=== PATIENT | male | born 1955 | race African-American/Black ===

== ENCOUNTER 2017-11-18 10:26 | Emergency (ER) | payer MEDICARE ==
[~2017-11-18] VITALS: Ht 182.9 cm; Wt 90.9 kg
[2017-11-18 10:49] VITALS: BP 181/78; Ht 182.9 cm; Wt 90.9 kg
[2017-11-18] MEDS ORDERED: PRINIVIL20 MG (10:52)
[2017-11-18] MEDS ORDERED: HYDROCODONE-APA1 TAB PO (10:52)
[2017-11-18] MEDS ORDERED: ZOCOR10 MG (10:53)
[2017-11-18] MEDS ORDERED: TOUJEO SOL300 UNIT/1 SC (10:53)
== END 2017-11-18 15:34 | disposition home or self-care (01) ==
LOC: D.ER 10:26
DX: G89.29 Other chronic pain (principal); E11.9 Type 2 diabetes mellitus without complications; G62.9 Polyneuropathy, unspecified; M25.562 Pain in left knee; M25.561 Pain in right knee; Z76.0 Encounter for issue of repeat prescription; I10 Essential (primary) hypertension

== ENCOUNTER → 2017-11-29 13:13 | Outpatient (CLI) | payer MEDICARE, MEDICAID ==
[2017-11-18 10:49] VITALS: BMI 27.2
[~2017-11-29 13:13] MED LIST: HYDROCODONE-APA1 TAB PO; PRINIVIL20 MG; TOUJEO SOL300 UNIT/1 SC; ZOCOR10 MG
== END | disposition home or self-care (01) ==
LOC: D.MRI 13:00
DX: M79.672 Pain in left foot (principal)

== ENCOUNTER → 2017-12-02 16:54 | Outpatient (CLI) | payer MEDICARE, MEDICAID ==
[2017-11-18 10:49] VITALS: BMI 27.2
[2017-12-02 18:30] LABS: BASOPHILS 0.4 % (0-2); EOSINOPHILS 0.5 % (0-7); HEMATOCRIT 44.1 % (42.0-54.0); HEMOGLOBIN 15.2 g/dL (13.5-17.5); IMMATURE GRANULOCYTES 0.9 % (0-5); LYMPHOCYTES 33.8 % (15-50); MCHC 34.5 g/dL (31.0-37.0); MCV 87.2 fL (80.0-100.0); MEAN PLATELET VOLUME 11.9 fL (7.4-10.4); MONOCYTES 9.5 % (2-11); NEUTROPHILS 54.9 % (40-80); RBC 5.06 10x6/uL (4.20-6.10); RDW 13.5 % (11.5-14.5); WBC 7.7 10x3/uL (4.8-10.8)
[2017-12-02 18:31] LABS: PLATELET COUNT 91 10x3/uL (130-400)
[2017-12-02 18:44] LABS: CALC OSMOLALITY 272 mosm/kg (275-300); CARBON DIOXIDE 25.7 mmol/L (21.0-32.0); CHLORIDE - SERUM 103 mmol/L (98-107); CREATININE - SERUM 0.9 mg/dL (0.6-1.3); GLUCOSE 76 mg/dL (74-106); POTASSIUM - SERUM 4.6 mmol/L (3.5-5.1); SODIUM 137 mmol/L (136-145); UREA NITROGEN 13 mg/dL (7-18); eGFR NON AFRICAN AMERICAN > 90 mL/min (90-120)
[2017-12-02 19:11] LABS: ERYTHROCYTE SEDIMENTATION RATE 2 mm/hr (0-20); PLATELET ESTIMATE DECREASED
== END | disposition home or self-care (01) ==
LOC: D.LABREF 16:54
PROVIDERS: Orthopaedic Surgery
DX: M86.9 Osteomyelitis, unspecified (principal)

== ENCOUNTER 2018-05-08 11:11 | Emergency (ER) | payer MEDICARE, MEDICAID ==
[~2018-05-08] VITALS: Ht 182.9 cm; Wt 81.8 kg
[2018-05-08 11:17] VITALS: Ht 182.9 cm; Wt 81.8 kg
[2018-05-08] MEDS ORDERED: NORVASC5 MG PO (11:19)
[2018-05-08] MEDS ORDERED: LEVOFLOXACIN500 MG PO (12:42)
[2018-05-08 14:52] VITALS: BP 128/85
== END 2018-05-08 14:50 | disposition home or self-care (01) ==
LOC: D.ER 11:11
DX: J20.9 Acute bronchitis, unspecified (principal); E11.9 Type 2 diabetes mellitus without complications; Z79.4 Long term (current) use of insulin; I10 Essential (primary) hypertension

== ENCOUNTER 2018-05-14 07:03 | Emergency (ER) | payer MEDICARE, MEDICAID ==
[~2018-05-14] VITALS: Ht 182.9 cm; Wt 81.6 kg
[~2018-05-14 07:03] MED LIST changes: +LEVOFLOXACIN500 MG PO; +NORVASC5 MG PO
[2018-05-14 07:06] VITALS: Ht 182.9 cm; Wt 81.6 kg
[2018-05-14 07:42] LABS: UDS - AMPHET NEGATIVE QUAL (NEGATIVE); UDS - BARB NEGATIVE QUAL (NEGATIVE); UDS - BENZO NEGATIVE QUAL (NEGATIVE); UDS - COCAINE NEGATIVE QUAL (NEGATIVE); UDS - OPIATE NEGATIVE QUAL (NEGATIVE); UDS - PCP NEGATIVE QUAL (NEGATIVE); UDS - THC POSITIVE QUAL (NEGATIVE)
[2018-05-14 08:16] VITALS: BP 199/98
== END 2018-05-14 08:15 | disposition home or self-care (01) ==
LOC: D.ER 07:03
PROVIDERS: Family Medicine
DX: F15.929 Other stimulant use, unspecified with intoxication, unspecified (principal); I10 Essential (primary) hypertension